=== PATIENT | male | born 1935 | race Two or more races ===

== ENCOUNTER 2022-11-12 21:37 | Emergency (ER) | payer MEDICAID, OTHER ==
[~2022-11-12] VITALS: Ht 172.7 cm; Wt 77.1 kg
--- NOTE | 2022-11-12 22:25 | NUR ---
SEEMA 89 FROM HOME FOR C/O COUGH. TESTED + FOR COVID 5 DAYS AGO. PLACED IN BED, AWAKE-ALERT RESPONDING TO VERBAL STIMULI (COMMUNICATION BARRIER). SATURATING AT 94%RA. SAENZ AT BEDSIDE FOR EVAL.
--- NOTE | 2022-11-12 23:00 | NUR ---
Patient discharged to home in stable condition. Written and verbal after care instructions given. verbalizes understanding of instruction.
[2022-11-12 23:01] VITALS: BP 145/70
== END 2022-11-12 23:00 | disposition home or self-care (01) ==
LOC: ER 21:39
DX: U07.1 COVID-19 (principal); I10 Essential (primary) hypertension